=== PATIENT | female | born 1970 | race Caucasian/White ===

== ENCOUNTER 2020-01-22 00:58 | Outpatient (CLI) | payer MEDICARE, OTHER, SELFPAY ==
[2020-01-22 20:48] LABS: SARS-CoV-2 RNA PCR Negative
== END 2020-01-22 00:59 | disposition home or self-care (01) ==
LOC: ANHCOVIDDT 00:59
PROVIDERS: Visit Provider Obstetrics & Gynecology
DX: Z01.812 Encounter for preprocedural laboratory examination (principal); Z20.828 Contact with and (suspected) exposure to other viral communicable diseases
CPT/HCPCS: 87635; C9803; U0003

== ENCOUNTER 2020-01-24 00:20 | Day surgery (SDC) | payer MEDICARE, OTHER, SELFPAY ==
[2020-01-13 08:38] VITALS: BMI 74.7
[2020-01-24 11:00] VITALS: BP 151/102; PULSE 93; RESP 20; TEMP 36.6; O2SAT 95
--- NOTE | 2020-01-24 12:01 | PM.IMHP ---
H&P: HPI History of Present Illness Date/Time: 01/24/20 12:01 Chief complaint: Abnormal Uterine Bleeding Narrative: Stephanie Shaw is a 49 year old female with very high BMI whom was having problems with AUB. Ultrasound was inconclusive because body habitus. A1c and TSH normal. Unable to complete EMB in office due to patient discomfort. She has anxiety as well. DIscussed doing hysteroscopy D&C to evaluate the uterus, doing a pap under anesthesia since hasnt been completed yet, and finally placing an IUD for treatment of AUB so wouldnt need to worry if any further problems after the hysteroscopy . She is agreeable to this Review of Systems Review of Systems: All systems reviewed & are unremarkable except as noted in HPI and below Constitutional: Constitutional: Reports no additional constitutional complaints Eyes: Eyes: Reports no additional eye complaints ENT: Reports system reviewed and no additional complaints, except as documented Cardiovascular: Cardiovascular: Reports no additional cardiovascular complaints Respiratory: Respiratory: Reports no additional respiratory complaints [facility] Past Medical History Medical History Abnormal vaginal bleeding Anemia Anxiety Asthma Depression History of left heart catheterization (LHC) Hypertension Obesity Surgical History Surgical History H/O tubal ligation H/O umbilical hernia repair Hx of cholecystectomy Social History Social History Smoking status: Never smoker Alcohol intake: never Substance use: never Spiritual care concerns: No Meds Home Medications and Allergies Home Medications Medication Instructions Recorded Confirmed Type cyclobenzaprine 10 mg PO BID PRN 06/03/19 01/24/20 History dicyclomine 20 mg PO TID 06/03/19 01/24/20 History hydrochlorothiazide 25 mg PO DAILY 06/03/19 01/24/20 History oxcarbazepine 300 mg PO BID 06/03/19 01/24/20 History acetaminophen-codeine 1 tablet PO Q6H PRN 01/13/20 01/24/20 History albuterol sulfate [ProAir HFA] 1 inh INHALATION QID PRN 01/13/20 01/24/20 History aspirin 81 mg PO DAILY 01/13/20 01/24/20 History buspirone 10 mg PO BID 01/13/20 01/24/20 History calcium carbonate [Calcium 600] 600 mg PO BID 01/13/20 01/24/20 History cholecalciferol (vitamin D3) 50 mcg PO DAILY 01/13/20 01/24/20 History [Vitamin D3] clonidine HCl 0.2 mg PO DAILY 01/13/20 01/24/20 History ferrous sulfate [iron] 325 mg PO DAILY 01/13/20 01/24/20 History fluoxetine 60 mg PO DAILY 01/13/20 01/24/20 History hyoscyamine sulfate [Levsin] 0.125 mg PO Q4H PRN 01/13/20 01/13/20 History lamotrigine [Lamictal] 50 mg PO DAILY 01/13/20 01/24/20 History nortriptyline 10 mg PO HS 01/13/20 01/24/20 History omeprazole 40 mg PO BID 01/13/20 01/24/20 History pregabalin 300 mg PO BID 01/13/20 01/24/20 History Allergies Allergy/AdvReac Type Severity Reaction Status Date / Time naproxen [From Aleve] AdvReac PILL GETS Verified 01/24/20 11:32 STUCK IN THROAT Exam Const: General: no acute distress HENMT: Ears: TM's normal bilaterally Eyes: General: appearance normal, both eyes and all related structures Neck: Neck: no JVD Resp: Auscultation: clear to auscultation bilaterally Cardio: Rate: regular rate Rhythm: regular rhythm GI: GI Palp: Yes Soft to palpation Skin: General skin exam: normal color and no rashes or lesions noted Neuro: Other: uses walker to help ambulate Psych: Mental Status: mental status grossly normal Assessment and Plan Assessment and plan (1) Abnormal vaginal bleeding: Code(s): N93.9 - Abnormal uterine and vaginal bleeding, unspecified Status: Acute Assessment and Plan: Plan is for screening for pap with HPV, evaluation of AUB with hysteroscopy D&C and placement of IUD MIRENA for treatment of IU
--- NOTE | 2020-01-24 12:06 | WPDHPUPDATE1 ---
History and Physical Update Update Date/Time: 01/24/20 12:06 History and Physical has been reviewed, including an updated exam of the patient. There are NO changes in the patient's condition. Risks, benefits, and alternatives have been discussed and questions answered. Patient agrees to proceed with procedure.
[2020-01-24] MEDS: ACETAMINOPHEN 500 MG TABLET 1000 MG PO (12:13)
--- NOTE | 2020-01-24 12:19 | WPDANESEPPF ---
Anes - Initial Pre Proc Eval Procedure: Operation Date: 01/24/20 13:00 Proposed Procedures p Hysteroscopy Dilation and Curettage With Intrauterine Device Insertion - Stephanie Nicole MD Date/Time: 01/24/20 12:19 Surgeon: Stephanie Nicole MD Pre Op Diagnosis: Abnormal Uterine Bleeding Patient Data Age: 49 Gender: F Height: 5 ft 3 in Weight: 191.42 kg Allergies Allergy/AdvReac Type Severity Reaction Status Date / Time naproxen [From Aleve] AdvReac PILL GETS Verified 01/24/20 11:32 STUCK IN THROAT Home Medications Medication Instructions Recorded Confirmed Type cyclobenzaprine 10 mg PO BID PRN 06/03/19 01/24/20 History dicyclomine 20 mg PO TID 06/03/19 01/24/20 History hydrochlorothiazide 25 mg PO DAILY 06/03/19 01/24/20 History oxcarbazepine 300 mg PO BID 06/03/19 01/24/20 History acetaminophen-codeine 1 tablet PO Q6H PRN 01/13/20 01/24/20 History albuterol sulfate [ProAir HFA] 1 inh INHALATION QID PRN 01/13/20 01/24/20 History aspirin 81 mg PO DAILY 01/13/20 01/24/20 History buspirone 10 mg PO BID 01/13/20 01/24/20 History calcium carbonate [Calcium 600] 600 mg PO BID 01/13/20 01/24/20 History cholecalciferol (vitamin D3) 50 mcg PO DAILY 01/13/20 01/24/20 History [Vitamin D3] clonidine HCl 0.2 mg PO DAILY 01/13/20 01/24/20 History ferrous sulfate [iron] 325 mg PO DAILY 01/13/20 01/24/20 History fluoxetine 60 mg PO DAILY 01/13/20 01/24/20 History hyoscyamine sulfate [Levsin] 0.125 mg PO Q4H PRN 01/13/20 01/13/20 History lamotrigine [Lamictal] 50 mg PO DAILY 01/13/20 01/24/20 History nortriptyline 10 mg PO HS 01/13/20 01/24/20 History omeprazole 40 mg PO BID 01/13/20 01/24/20 History pregabalin 300 mg PO BID 01/13/20 01/24/20 History Patient hx anesthesia problems: none Family hx anesthesia problems: none PMFSH Past Medical History Medical History Abnormal vaginal bleeding Anemia Anxiety Asthma Depression History of left heart catheterization (LHC) Hypertension Obesity Surgical History Surgical History H/O tubal ligation H/O umbilical hernia repair Hx of cholecystectomy Social History Social History Smoking status: Never smoker Alcohol intake: never Substance use: never Spiritual care concerns: No Anes - Eval Final PreProcedure Day of Procedure 01/24/20 12:19 Patient weight: super morbidly obese Heart: regular rate and rhythm Lungs: clear to auscultation Airway: Mallampati scale class III Neurological: alert and oriented Last oral intake: >/= 8 hours ASA classification: IV Emergent: no Anesthetic plan: proceed Anesthesia type and monitoring: general GIVS (may use LMA if needed) and standard monitoring Informed Consent: The patient's anesthetic plan and its attendant risks and benefits were discussed with the patient/family/POA. Questions were solicited and answers provided to the satisfaction of the patient/family/POA.
[2020-01-24] MEDS: LACTATED RINGERS 1,000 ML 30 ML IV CONT (12:25)
--- NOTE | 2020-01-24 14:01 | P.OP_ITS ---
Procedure Note - Detailed Date of procedure: 01/24/20 Pre-op diagnosis: Abnormal Uterine Bleeding intolerance to office examination Post-op diagnosis: other (Abnormal uterine bleeding, intolerance to office examination, and uterine polyp) Procedure performed: Exam under anesthesia, pap smear, hysteroscopy dialation and currettage and insertion of MIRENA IUD Description of procedure: The patient was taken to operating room. General anesthsia was found to be adequate. She was then prepared and draped in the dorsal lithotomy position in [facility]. A speculum was used to visualize the cervix and a single toothed tenaculum placed on the anterior lip. A uterine sound sounded the uterus to 9cm. A 5mm hysteroscope was then inserted into the cervix which was difficult given long vaginal canal and redundant v aginal tissue. The fundus was visualized. A small polyp noted in left cornua and possible posterior myoma intruding into the endometrium. Punch biopsy obtained of myoma. The hysteroscope removed and the sharp currettage was used which appeared to remove the polyp. This was placed in formalin. A mirena IUD was then inserted after setting the device to 9cm, inserting into the endometrium and releasing it by pulling the trigger. the string was then cut to 5cm long. Upon cutting the redundant tissue got into the scissors from a valsalva. So the vaginal wall was then repaired with 2 figure of 8 sutures of O- vicryl. Clots were removed. EBL approximately 50cc All instruments removed and instruments accounted for. [facility] Surgeon: Stephanie Nicole MD Estimated blood loss (mL): 50 Drains: No Packing: No Pathology: yes (endometrial currettings and punch biopsy together) Complications: No immediate complications Condition: stable Disposition: PACU Findings: polyp in left cornua. Fluffy white endometrium throughout
[2020-01-24 14:02] VITALS: BP 139/77; PULSE 93; RESP 20; O2SAT 97
[2020-01-24 14:15] VITALS: BP 139/70; PULSE 85; RESP 20; O2SAT 93
[2020-01-24 14:45] VITALS: BP 120/85; PULSE 88; RESP 20; O2SAT 93
[2020-01-24 15:10] VITALS: BP 128/68; PULSE 85; RESP 20; O2SAT 94
== END 2020-01-24 15:27 | disposition home or self-care (01) ==
PROVIDERS: Visit Provider Obstetrics & Gynecology
PROC: 0U5B8ZZ Destruction of Endometrium, Via Natural or Artificial Opening Endoscopic (ICD-10-PCS; CPT 58563; principal; 2020-01-24 13:00)
DX: N93.9 Abnormal uterine and vaginal bleeding, unspecified (principal); D64.9 Anemia, unspecified; N85.8 Other specified noninflammatory disorders of uterus; Z30.430 Encounter for insertion of intrauterine contraceptive device; J45.909 Unspecified asthma, uncomplicated; F41.8 Other specified anxiety disorders; I10 Essential (primary) hypertension; Z68.45 Body mass index [BMI] 70 or greater, adult; Z79.82 Long term (current) use of aspirin
CPT/HCPCS: 58558; 58300; 88305; A9270; J2250; J2704; J3010; J7030; J7120

== ENCOUNTER 2020-03-28 18:30 | Emergency (ER) | payer MEDICARE, OTHER, SELFPAY ==
--- NOTE | ~2020-03-28 | XR_ITS ---
EXAMINATION: XR chest 1V portable DATE: 03/28/2020 18:57 INDICATION: Mid to left-sided chest pain. TECHNIQUE: A single frontal view of the chest was obtained. COMPARISON: Chest 2 views 06/03/2019, CT abdomen and pelvis 03/21/2017 FINDINGS: Sensitivity is decreased by obesity. There are mild airspace opacities in right lower lung zone. No pleural effusion or pneumothorax. Cardiomegaly is noted. IMPRESSION: 1. Mild airspace opacities in right lower lung zone, consistent with atelectasis versus pneumonia. 2. Cardiomegaly. Reviewed, dictated and finalized at location A. G[employer] MEDICAL SERVICES COORDINATOR IMPRESSION: 1. Mild airspace opacities in right lower lung zone, consistent with atelectasi s versus pneumonia. 2. Cardiomegaly.
--- NOTE | ~2020-03-28 | CT_ITS ---
EXAMINATION: CT abdomen pelvis w con DATE: 03/28/2020 20:51 INDICATION: Left chest pain. Epigastric abdominal pain. TECHNIQUE: Computed tomography (CT) of the abdomen and pelvis was performed with 100 mL Omnipaque 350 intravenous contrast. Automated exposure control and iterative reconstruction technique were employe d. The dose-length product was 1575.73 mGy-cm. COMPARISON: CT abdomen and pelvis 03/21/2017 FINDINGS: The visualized portions of the lung bases demonstrate mild atelectasis. A calcified right l deandre nodule is consistent with old granulomatous disease. No pleural effusion. Cardiomegaly is noted. No pericardial effusion. The liver is normal. There is chronic mild splenomegaly, likely secondary to obesity. There are surgical changes of the stomach. There are changes of cholecystectomy. The pancre as, adrenal glands, and kidneys are normal. There are no dilated loops of bowel. The appendix is norm al. There is no free intraperitoneal fluid. There is a mildly enlarged left inguinal lymph node, like ly reactive. There is mild thoracolumbar spondylosis. IMPRESSION: 1. No etiology for the patient's symptoms. Reviewed, dictated and finalized at location A. GER OF PMO
[2020-03-28 18:30] VITALS: BP 142/77; PULSE 90; PULSE 92; RESP 12; TEMP 36.6; O2SAT 97
--- NOTE | 2020-03-28 18:43 | ECG_ITS ---
Measurements Intervals [place] Rate: 88 P: 52 MO: 183 QRS: 3 QRSD: 109 T: 25 QT: 357 QTc: 432 Interpretive Statements SINUS RHYTHM NORMAL ECG Electronically Signed On 03-29-2020 18:08:14 RN [facility] by Clayton Styles D.O.
[2020-03-28 19:14] LABS: Basophils Absolute Auto 0.04 K/mm3 (0.00-0.10); Basophils Percent Auto 0.7 % (0.0-1.0); Eosinophils Absolute Auto 0.28 K/mm3 (0.02-0.50); Eosinophils Percent Auto 4.9 % (1.0-6.0); Hematocrit 35.5 % (35.0-49.0); Hemoglobin 10.9 g/dL (12.0-15.0); Immature Granulocyte Absolute 0.02 K/mm3 (0.00-0.00); Immature Granulocyte Percent A 0.3 % (0.0-0.0); Lymphocytes Absolute Auto 1.58 K/mm3 (1.10-4.50); Lymphocytes Percent Auto 27.4 % (18.0-42.0); Mean Corpuscular HGB Conc 30.7 g/dL (32.0-36.0); Mean Corpuscular Hemoglobin 27.4 pg (27.0-31.0); Mean Corpuscular Volume 89.2 fL (78.0-102.0); Mean Platelet Volume 11.7 fl (9.2-11.8); Monocytes Absolute Auto 0.43 K/mm3 (0.10-0.90); Monocytes Percent Auto 7.5 % (2.0-11.0); Neutrophils Absolute Auto 3.4 K/mm3 (1.7-7.2); Neutrophils Percent Auto 59.2 % (50.0-70.0); Platelet Count Result 161 K/mm3 (150-420); Red Blood Count 3.98 M/mm3 (4.20-5.40); Red Cell Distribution Width 14.3 % (11.6-14.4); White Blood Count 5.8 K/mm3 (4.8-10.8)
[2020-03-28 19:31] LABS: Alanine Aminotransferase 46 U/L (14-59); Alkaline Phosphatase 52 U/L (46-116); Anion Gap 1 mmol/L (8-16); Aspartate Amino Transferase 75 U/L (15-37); Bilirubin,Total 0.5 mg/dL (0.00-1.00); Blood Urea Nitrogen 12 mg/dL (7-18); Calcium 8.9 mg/dL (8.5-10.1); Carbon Dioxide 37 mmol/L (21-32); Chloride 103 mmol/L (98-108); Estimated CRCL calculation 137 ml/min; Estimated Glomerular Filt Rate > 60; Glucose 100 mg/dL (70-99); Osmolality Calculated 291 mOsm/kg (285-295); Potassium 3.8 mmol/L (3.5-5.1); Sodium 141 mmol/L (136-145)
[2020-03-28 19:36] LABS: Troponin I < 0.02 ng/mL (0.00-0.056)
[2020-03-28 19:37] LABS: Lipase 72 U/L (73-393)
[2020-03-28 20:12] LABS: Pregnancy On Board Control Positive; Urine Pregnancy Test Negative
--- NOTE | 2020-03-28 21:27 | ED.CHESTPAIN ---
HPI - Chest Pain General Chief Complaint: Chest Pain Stated Complaint: Ambulance Source: patient and EMS Mode of arrival: EMS Limitations: no limitations History of Present Illness HPI narrative: this is a 49-year-old female that presents with some chest discomfort with more epigastric fullness, feeling lightheaded with some nausea, the patient recently had a gastric bypass of previous week, and is currently on a restricted diet causing her to be lightheaded. The patient had normal heart catheterization approximately 2 years ago. Has a history of hypertension, with no shortness of breath no diaphoresis does have some epigastric abdominal discomfort and fullness. Pain is off and on and patient is currently mod morbidly obese and recently had a gastric bypass for obesity. MD complaint: chest discomfort ( Epigastric tenderness) Onset (ago): day(s) Onset: during rest and after eating Pain location: epigastric Pain radiation: none Severity: moderate Quality: fullness Related Data Home Medications Medication Instructions Recorded Confirmed cyclobenzaprine 10 mg PO BID PRN 06/03/19 03/28/20 dicyclomine 20 mg PO TID 06/03/19 03/28/20 hydrochlorothiazide 25 mg PO DAILY 06/03/19 03/28/20 oxcarbazepine 450 mg PO BID 06/03/19 03/28/20 albuterol sulfate [ProAir HFA] 1 inh INHALATION QID PRN 01/13/20 03/28/20 buspirone 20 mg PO BID 01/13/20 03/28/20 clonidine HCl 0.2 mg PO HS 01/13/20 03/28/20 ferrous sulfate [iron] 325 mg PO DAILY 01/13/20 03/28/20 fluoxetine 60 mg PO DAILY 01/13/20 03/28/20 lamotrigine [Lamictal] 50 mg PO DAILY 01/13/20 03/28/20 nortriptyline 10 mg PO HS 01/13/20 03/28/20 pregabalin 300 mg PO BID 01/13/20 03/28/20 famotidine 20 mg PO BID 03/28/20 03/28/20 hydroxyzine pamoate 25 mg PO TID 03/28/20 03/28/20 loratadine 10 mg PO DAILY 03/28/20 03/28/20 oxycodone 5 mg PO Q6-12H PRN 03/28/20 03/28/20 Allergies Allergy/AdvReac Type Severity Reaction Status Date / Time naproxen [From Aleve] AdvReac PILL GETS Verified 01/24/20 11:32 STUCK IN THROAT Review of Systems Review of Systems: All systems reviewed & are unremarkable except as noted in HPI and below PMFSH Past Medical History Medical History (Updated 03/28/20 @ 21:37 by Jraed Guadarrama MD) Abnormal vaginal bleeding Anemia Anxiety Asthma Depression History of left heart catheterization (LHC) Hypertension Obesity Surgical History Surgical History H/O tubal ligation H/O umbilical hernia repair Hx of cholecystectomy Social History Social History Smoking status: Never smoker Alcohol intake: never Substance use: never Spiritual care concerns: No Exam Const: General: cooperative and healthy appearing HENMT: Head: normal to inspection Ears: hearing grossly normal bilaterally General nose exam: Normal external nose present Face and sinus: normal facial exam Eyes: General: appearance normal, both eyes and all related structures Chest: Chest palpation & inspection: normal inspection of the chest Resp: Effort & Inspection: normal respiratory effort and able to speak in complete sentences Cardio: Jugular venous distension: no JVD Palpation: normal PMI Rate: regular rate Rhythm: regular rhythm Heart sounds: S1 normal heart sound present and S2 normal heart sound present GI: Inspection: normal to inspection GI Palp: Yes abdominal tenderness ( Epigastric area) Percussion: Yes normal to percussion Back/Spine/Pelvis: Back: no CVA tenderness Cervical Spine: normal cervical lordosis Skin: General skin exam: normal color and no rashes or lesions noted Neuro: General: oriented to person, oriented to place, oriented to time and patient oriented x3 Psych: Appearance: grossly normal Mental Status: mental status grossly normal Course Course Emergency Course: patient currently not having any chest pain but does
[2020-03-28 22:19] VITALS: BP 148/75; PULSE 92; RESP 12; O2SAT 98
== END 2020-03-28 22:15 | disposition home or self-care (01) ==
PROVIDERS: Emergency Provider Emergency Medicine
DX: R12 Heartburn (principal); J18.9 Pneumonia, unspecified organism
CPT/HCPCS: 36415; 71045; 74177; 80053; 81025; 83690; 84484; 85025; 93005; 99284; A9270; Q9965

== ENCOUNTER 2021-01-03 17:29 | Emergency (ER) | payer MEDICARE, OTHER, SELFPAY ==
[2021-01-03 17:35] VITALS: BP 148/90; PULSE 99; RESP 20; TEMP 36.9; O2SAT 100
[2021-01-03 17:58] LABS: Add Urine Microscopic? YES; Appearance Urine Clear (Clear); Bilirubin Urine Negative (Negative); Blood Urine 2+ (Negative); Color Urine Light Yellow (Yellow); Glucose Urine UA Negative (Negative); Ketones Urine Negative (Negative); Leukocyte Esterase Ur Negative (Negative); Nitrate Urine Negative (Negative); Protein Urine Negative (Negative); Specific Grav Ur 1.025 (1.010-1.020); Urobilinogen Urine 0.2 mg/dL (0.2-1.0)
[2021-01-03 18:03] LABS: Bacteria Urine Trace /hpf; Squamous Epithelial Cell Urine Many /hpf (Few); WBC Urine 0-3 /hpf (0-3)
--- NOTE | 2021-01-03 18:26 | ED.ABDPAIN ---
HPI - Abdominal Pain General Chief Complaint: Urogenital-Female Stated Complaint: Not feeling well for a couple days Time Seen by Provider: 01/03/21 17:31 Source: patient and RN notes reviewed Mode of arrival: ambulatory Limitations: no limitations History of Present Illness MD elicited complaint: abdominal pain and other (and urinary frequency. no fever, nausea, vomiting or loose stools. ) Pertinent past history: past UTI Onset (ago): day(s) (2) Pain Consistency: colicky Location: suprapubic Severity: mild Quality: cramping Exacerbating factors: nothing Relieving factors: nothing Associated symptoms: dysuria Related Data Patient : No Home Medications Medication Instructions Recorded Confirmed cyclobenzaprine 10 mg PO BID PRN 06/03/19 01/03/21 dicyclomine 20 mg PO TID 06/03/19 01/03/21 hydrochlorothiazide 25 mg PO DAILY 06/03/19 01/03/21 oxcarbazepine 450 mg PO BID 06/03/19 01/03/21 albuterol sulfate [ProAir HFA] 1 inh INHALATION QID PRN 01/13/20 01/03/21 buspirone 20 mg PO BID 01/13/20 01/03/21 clonidine HCl 0.2 mg PO HS 01/13/20 01/03/21 ferrous sulfate [iron] 325 mg PO DAILY 01/13/20 01/03/21 fluoxetine 60 mg PO DAILY 01/13/20 01/03/21 lamotrigine [Lamictal] 50 mg PO DAILY 01/13/20 01/03/21 nortriptyline 10 mg PO HS 01/13/20 01/03/21 pregabalin 300 mg PO BID 01/13/20 01/03/21 famotidine 20 mg PO BID 03/28/20 01/03/21 hydroxyzine pamoate 25 mg PO TID 03/28/20 01/03/21 loratadine 10 mg PO DAILY 03/28/20 01/03/21 oxycodone 5 mg PO Q6-12H PRN 03/28/20 01/03/21 Allergies Allergy/AdvReac Type Severity Reaction Status Date / Time naproxen [From Aleve] AdvReac PILL GETS Verified 09/08/20 09:00 STUCK IN THROAT Review of Systems Review of Systems: All systems reviewed & are unremarkable except as noted in HPI and below Constitutional: Constitutional: Reports as per HPI and Reports no additional constitutional complaints Eyes: Eyes: Reports as per HPI and Reports no additional eye complaints ENT: Reports system reviewed and no additional complaints, except as documented and Reports as per HPI Cardiovascular: Cardiovascular: Reports as per HPI and Reports no additional cardiovascular complaints Respiratory: Respiratory: Reports as per HPI and Reports no additional respiratory complaints Gastrointestinal: Gastrointestinal: Reports as per HPI and Reports no additional gastrointestinal complaints Genitourinary: Genitourinary: Reports no additional female genitourinary complaints, Reports as per HPI, Reports nocturia and Reports dysuria Musculoskeletal: Musculoskeletal: Reports no additional musculoskeletal complaints and Reports as per HPI Integumentary/Breasts: Skin/Breast: Reports system reviewed and no additional complaints, except as docu and Reports as per HPI Neurologic: Reports system reviewed and no additional complaints, except as documented and Reports as per HPI Psychiatric: Psychiatric: Reports no additional psychiatric complaints and Reports as per HPI Endocrine: Endocrine: Reports no additional endocrine complaints and Reports as per HPI Hematologic/Lymphatic: Hematologic/Lymphatic: Reports no additional hematologic/lymphatic complaints and Reports as per HPI Allergic/Immunologic: Allergic/Immunologic: Reports no additional allergic/immunologic complaints and Reports as per HPI PMFSH Past Medical History Medical History (Updated 01/03/21 @ 18:39 by Sammie Alberto MD) Abnormal vaginal bleeding Anemia Anxiety Asthma Depression History of left heart catheterization (LHC) Hypertension Obesity Surgical History Surgical History H/O tubal ligation H/O umbilical hernia repair Hx of cholecystectomy Social History Social History Smoking status: Never smoker Alcohol intake: never Substance use: never Spiritual care concerns: No Exam Const: Gen
[2021-01-03] MEDS: ACETAMINOPHEN 325 MG TABLET 650 MG PO (18:28)
[2021-01-03 19:11] VITALS: BP 136/70; PULSE 95; RESP 20; TEMP 36.4; O2SAT 96
== END 2021-01-03 19:16 | disposition home or self-care (01) ==
PROVIDERS: Emergency Provider Emergency Medicine; PCP Family Medicine
DX: N39.0 Urinary tract infection, site not specified (principal)
CPT/HCPCS: 81001; 99283; A9270

== ENCOUNTER 2021-01-25 18:46 | Emergency (ER) | payer MEDICARE, OTHER, SELFPAY ==
--- NOTE | ~2021-01-25 | CT_ITS ---
EXAMINATION: CTA chest PE protocol DATE: 01/25/2021 20:38 INDICATION: Shortness of breath. TECHNIQUE: Computed tomography angiography (CTA) of the chest was performed with 100 mL Omnipaque-350 intravenous contrast timed to evaluate the pulmonary arteries. Coronal maximum intensity projection 3D-reconstructions were created by the technologist. Automated exposure control and iterative reconst ruction technique were employed. The dose-length product was 1010.84 mGy-cm. COMPARISON: Chest 2 views 01/25/2021, CT abdomen and pelvis 03/28/2020 FINDINGS: The lungs demonstrate mild atelectasis. There are 7 mm and 3 mm nodules in lingula. There i s a 6 mm nodule in left lower lobe. No pleural effusion. The heart size is normal. No pericardial eff usion. There is poor contrast opacification of the pulmonary arteries. There are surgical changes in the stomach. There is mild thoracic spondylosis. IMPRESSION: 1. Nondiagnostic evaluation of the pulmonary arteries. Repeat CTA is recommended. 2. Pulmonary nodules measuring up to 7 mm, stable from 03/28/2020, likely benign. Reviewed, dictated and finalized at location A. IMPRESSION: 1. Nondiagnostic evaluation of the pulmonary arteries. Repeat CTA is recommende d. 2. Pulmonary nodules measuring up to 7 mm, stable from 03/28/2020, likely benign .
--- NOTE | ~2021-01-25 | CT_ITS ---
EXAMINATION: CTA chest PE protocol DATE: 01/25/2021 21:30 INDICATION: Shortness of breath. TECHNIQUE: Computed tomography angiography (CTA) of the chest was performed with 100 mL Omnipaque-350 intravenous contrast timed to evaluate the pulmonary arteries. Coronal maximum intensity projection 3D-reconstructions were created by the technologist. Automated exposure control and iterative reconst ruction technique were employed. The dose-length product was 902.39 mGy-cm. COMPARISON: CT abdomen and pelvis 03/28/2020. FINDINGS: The lungs demonstrate mild atelectasis. There are 7 mm and 3 mm nodules in lingula. There i s a 6 mm nodule in left lower lobe. No pleural effusion. The heart size is normal. No pericardial eff usion. There is no pulmonary embolus. There are surgical changes in the stomach. There is mild thoracic spondylosis. IMPRESSION: 1. No pulmonary embolus. Sensitivity is mildly decreased by motion artifact and obesity. 2. Pulmonary nodules measuring up to 7 mm, stable from 03/28/2020, likely benign. Reviewed, dictated and finalized at location A. IMPRESSION: 1. No pulmonary embolus. Sensitivity is mildly decreased by motion artifact and obesity. 2. Pulmonary nodules measuring up to 7 mm, stable from 03/28/2020, likely benign .
--- NOTE | ~2021-01-25 | XR_ITS ---
EXAMINATION: XR chest 2V DATE: 01/25/2021 19:58 INDICATION: Shortness of breath. TECHNIQUE: Frontal and lateral views of the chest were obtained. COMPARISON: Chest single view 03/28/2020, CT abdomen and pelvis 03/28/2020 FINDINGS: There are airspace opacities in the lower lung zones. No pleural effusion or pneumothorax. Cardiomegaly is noted. There are prominent paracardial fat pads. Surgical clips overlie the upper george bs. Catheters overlie the upper limbs. IMPRESSION: 1. Airspace opacities in the lower lung zones, consistent with atelectasis versus pneumonia. 2. Cardiomegaly. Reviewed, dictated and finalized at location A. IMPRESSION: 1. Airspace opacities in the lower lung zones, consistent with atelectasis vers us pneumonia. 2. Cardiomegaly.
--- NOTE | 2021-01-25 19:22 | ECG_ITS ---
Measurements Intervals [place] Rate: 92 P: 46 [place]: 198 QRS: 9 QRSD: 115 T: 18 QT: 371 QTc: 461 Interpretive Statements SINUS RHYTHM EARLY PRECORDIAL R/S TRANSITION CONSIDER INFERIOR INFARCT, AGE INDETERMINATE ABNORMAL ECG Electronically Signed On 01-26-2021 7:14:04 CDT by Clayton Styles D.O.
[2021-01-25 19:25] VITALS: BP 132/90; PULSE 95; RESP 20; TEMP 36.4; O2SAT 96
[2021-01-25 19:48] LABS: Basophils Absolute Auto 0.06 K/mm3 (0.00-0.10); Basophils Percent Auto 0.8 % (0.0-1.0); Eosinophils Absolute Auto 0.25 K/mm3 (0.02-0.50); Eosinophils Percent Auto 3.3 % (1.0-6.0); Hematocrit 33.7 % (35.0-49.0); Hemoglobin 11.1 g/dL (12.0-15.0); Immature Granulocyte Absolute 0.03 K/mm3 (0.00-0.00); Immature Granulocyte Percent A 0.4 % (0.0-0.0); Lymphocytes Absolute Auto 2.57 K/mm3 (1.10-4.50); Mean Corpuscular HGB Conc 32.9 g/dL (32.0-36.0); Mean Corpuscular Hemoglobin 29.1 pg (27.0-31.0); Mean Corpuscular Volume 88.5 fL (78.0-102.0); Mean Platelet Volume 11.9 fl (9.2-11.8); Monocytes Absolute Auto 0.55 K/mm3 (0.10-0.90); Monocytes Percent Auto 7.3 % (2.0-11.0); Neutrophils Absolute Auto 4.1 K/mm3 (1.7-7.2); Neutrophils Percent Auto 54.2 % (50.0-70.0); Platelet Count Result 198 K/mm3 (150-420); Red Blood Count 3.81 M/mm3 (4.20-5.40); Red Cell Distribution Width 14.3 % (11.6-14.4); White Blood Count 7.6 K/mm3 (4.8-10.8)
[2021-01-25 20:02] LABS: Partial Thromboplastin Time 25.5 SEC (23.90-30.70); Prothrombin Time 10.9 Seconds (9.50-12.10)
[2021-01-25 20:07] LABS: D Dimer 0.72 mg/L (0.19-0.50)
[2021-01-25 20:10] LABS: Alanine Aminotransferase 64 U/L (14-59); Albumin Level 2.8 g/dL (3.4-5.0); Alkaline Phosphatase 97 U/L (46-116); Anion Gap 9 mmol/L (8-16); Aspartate Amino Transferase 17 U/L (15-37); Bilirubin,Total 0.2 mg/dL (0.00-1.00); Blood Urea Nitrogen 13 mg/dL (7-18); Calcium 8.3 mg/dL (8.5-10.1); Carbon Dioxide 27 mmol/L (21-32); Chloride 107 mmol/L (98-108); Estimated CRCL calculation 128 ml/min; Estimated Glomerular Filt Rate 50; Glucose 97 mg/dL (70-99); Osmolality Calculated 296 mOsm/kg (285-295); Potassium 3.7 mmol/L (3.5-5.1); Sodium 143 mmol/L (136-145); Total Protein 6.7 g/dL (6.4-8.2); Troponin I 16.7 ng/L (0.00-60.4)
[2021-01-25 20:11] LABS: Magnesium 1.7 mg/dL (1.8-2.4)
[2021-01-25 20:20] VITALS: BP 117/72; PULSE 89; RESP 20; O2SAT 99
[2021-01-25 20:46] LABS: NT Pro B Type Natriuretic Pept 81 pg/mL (0-125)
--- NOTE | 2021-01-25 21:54 | ED.SOB ---
HPI - SOB/Dyspnea General Chief Complaint: Shortness of Breath/Dyspnea Stated Complaint: swelling and trouble breathing Source: patient Mode of arrival: ambulatory History of Present Illness HPI Narrative: patient presents with some mild shortness of breath with no fever chills no cough no congestion no runny nose no nausea or vomiting the patient had recently surgery to remove excess skin under her bilateral arms and has currently drains in place the patient felt that she was a little volume overloaded with some mild lower extremity swelling, no audible wheezing no chest pain no diarrhea constipation no abdominal pain. MD elicited complaint: shortness of breath Onset (ago): day(s) Timing: intermittent Severity: mild Exacerbating factors: exertion Relieving factors: rest Related Data Home Medications Medication Instructions Recorded Confirmed cyclobenzaprine 10 mg PO BID PRN 06/03/19 01/25/21 dicyclomine 20 mg PO TID 06/03/19 01/25/21 hydrochlorothiazide 25 mg PO DAILY 06/03/19 01/25/21 oxcarbazepine 450 mg PO BID 06/03/19 01/25/21 albuterol sulfate [ProAir HFA] 1 inh INHALATION QID PRN 01/13/20 01/25/21 buspirone 20 mg PO BID 01/13/20 01/25/21 clonidine HCl 0.2 mg PO HS 01/13/20 01/25/21 ferrous sulfate [iron] 325 mg PO DAILY 01/13/20 01/25/21 fluoxetine 60 mg PO DAILY 01/13/20 01/25/21 lamotrigine [Lamictal] 50 mg PO DAILY 01/13/20 01/25/21 nortriptyline 10 mg PO HS 01/13/20 01/25/21 pregabalin 300 mg PO BID 01/13/20 01/25/21 famotidine 20 mg PO BID 03/28/20 01/25/21 hydroxyzine pamoate 25 mg PO TID 03/28/20 01/25/21 loratadine 10 mg PO DAILY 03/28/20 01/25/21 oxycodone 5 mg PO Q6-12H PRN 03/28/20 01/25/21 Allergies Allergy/AdvReac Type Severity Reaction Status Date / Time naproxen [From Aleve] AdvReac PILL GETS Verified 09/08/20 09:00 STUCK IN THROAT Review of Systems Review of Systems: All systems reviewed & are unremarkable except as noted in HPI and below PMFSH Past Medical History Medical History (Updated 01/25/21 @ 21:58 by Jared Guadarrama MD) Abnormal vaginal bleeding Anemia Anxiety Asthma Depression History of left heart catheterization (LHC) Hypertension Obesity Surgical History Surgical History H/O tubal ligation H/O umbilical hernia repair Hx of cholecystectomy Social History Social History Smoking status: Never smoker Alcohol intake: never Substance use: never Spiritual care concerns: No Exam Const: General: no acute distress Orientation/consciousness: patient oriented x3 HENMT: Head: normal to inspection Eyes: Conjunctivae: conjunctivae normal Pupils: Equal, round and reactive pupils present Neck: Neck: normal visual inspection Chest: Chest palpation & inspection: normal inspection of the chest Resp: Effort & Inspection: normal respiratory effort Auscultation: clear to auscultation bilaterally Cardio: Rate: regular rate Rhythm: regular rhythm GI: GI Palp: Yes Soft to palpation Percussion: Yes normal to percussion : General: Yes no CVA tenderness Back/Spine/Pelvis: Back: no CVA tenderness Skin: General skin exam: normal color Rashes: no rashes Neuro: General: patient oriented x3 and moves all extremities Extrem: General: normal to inspection and edema Other: trace peripheral edema bilaterally Psych: Mental Status: mental status grossly normal Affect: normal affect Thought content: Yes Normal thought content present Course Course Emergency Course: x-rays and labs reviewed with patient x-ray shows no acute findings patient had an elevated D-dimer and subsequent normal CTA scan performed Vital Signs Vital signs: Vital Signs Temperature 36.4 C 01/25/21 19:25 Pulse Rate 95 01/25/21 19:25 Respiratory Rate 20 01/25/21 19:25 Blood Pressure 132/90 01/25/21 19:25 Pulse Oximetry 96 01/25/21 19:25 [place]
[2021-01-25 22:32] VITALS: BP 133/74; PULSE 90; RESP 20; TEMP 36.3; O2SAT 97
== END 2021-01-25 22:33 | disposition home or self-care (01) ==
PROVIDERS: Emergency Provider Emergency Medicine; PCP Family Medicine
DX: R60.9 Edema, unspecified (principal); I10 Essential (primary) hypertension
CPT/HCPCS: 36415; 71046; 71275; 80053; 83735; 83880; 84484; 85025; 85380; 85610; 85730; 93005; 99283; 99284; Q9967

== ENCOUNTER 2021-06-21 16:18 | Emergency (ER) | payer MEDICARE, OTHER, SELFPAY ==
[2021-06-21 16:34] VITALS: PULSE 90; RESP 22; TEMP 37.2; O2SAT 94
--- NOTE | 2021-06-21 16:56 | ED.GENADULT ---
HPI - General Adult General Chief complaint: Unspecified Stated complaint: sores behind her knees Time Seen by Provider: 06/21/21 16:56 Source: patient History of Present Illness HPI narrative: this is a 51-year-old female morbidly obese that presents with which she states is sores on the back of her left knee with some no fever chills no drainage no known injury with strong brisk pedal pulse on the left with no peripheral edema no nausea vomiting no abdominal pain. Onset (ago): day(s) Location: left and lower extremity Severity: mild Related Data Home Medications Medication Instructions Recorded Confirmed cyclobenzaprine 10 mg PO BID PRN 06/03/19 01/25/21 dicyclomine 20 mg PO TID 06/03/19 01/25/21 hydrochlorothiazide 25 mg PO DAILY 06/03/19 01/25/21 oxcarbazepine 450 mg PO BID 06/03/19 01/25/21 albuterol sulfate [ProAir HFA] 1 inh INHALATION QID PRN 01/13/20 01/25/21 buspirone 20 mg PO BID 01/13/20 01/25/21 clonidine HCl 0.2 mg PO HS 01/13/20 01/25/21 ferrous sulfate [iron] 325 mg PO DAILY 01/13/20 01/25/21 fluoxetine 60 mg PO DAILY 01/13/20 01/25/21 lamotrigine [Lamictal] 50 mg PO DAILY 01/13/20 01/25/21 nortriptyline 10 mg PO HS 01/13/20 01/25/21 pregabalin 300 mg PO BID 01/13/20 01/25/21 famotidine 20 mg PO BID 03/28/20 01/25/21 hydroxyzine pamoate 25 mg PO TID 03/28/20 01/25/21 loratadine 10 mg PO DAILY 03/28/20 01/25/21 oxycodone 5 mg PO Q6-12H PRN 03/28/20 01/25/21 Allergies Allergy/AdvReac Type Severity Reaction Status Date / Time naproxen [From Aleve] AdvReac PILL GETS Verified 09/08/20 09:00 STUCK IN THROAT Review of Systems Review of Systems: All systems reviewed & are unremarkable except as noted in HPI and below PMFSH Past Medical History Medical History (Updated 06/21/21 @ 17:01 by Jared Guadarrama MD) Abnormal vaginal bleeding Anemia Anxiety Asthma Depression History of left heart catheterization (LHC) Hypertension Obesity Surgical History Surgical History H/O tubal ligation H/O umbilical hernia repair Hx of cholecystectomy Social History Social History Smoking status: Never smoker Alcohol intake: never Substance use: never Spiritual care concerns: No Exam Const: General: cooperative, healthy appearing, comfortable, no acute distress and well developed HENMT: Head: normal to inspection Ears: hearing grossly normal bilaterally General nose exam: Normal external nose present Face and sinus: normal facial exam Eyes: General: appearance normal, both eyes and all related structures Neck: Neck: normal visual inspection, full ROM and no lymphadenopathy Chest: Chest palpation & inspection: normal inspection of the chest and normal palpation of entire chest wall Resp: Effort & Inspection: normal respiratory effort Cardio: Jugular venous distension: no JVD Palpation: normal PMI Rate: regular rate Rhythm: regular rhythm GI: Inspection: normal to inspection Auscultation: normal bowel sounds Back/Spine/Pelvis: Back: no CVA tenderness Skin: Other: Red erythematous area on the posterior knee between fat pad it is located behind her left knee that is red moist erythematous. Neuro: General: oriented to person and oriented to place Extrem: General: normal to inspection, full ROM and capillary refill normal Psych: Appearance: grossly normal Course Course Emergency Course: Area was evaluated and placed nystatin on the affected area and advised patient to continue medication as prescribed and follow-up with her primary care physician. Vital Signs Vital signs: Vital Signs Temperature 37.2 C 06/21/21 16:34 Pulse Rate 90 06/21/21 16:34 Respiratory Rate 22 H 06/21/21 16:34 Pulse Oximetry 94 06/21/21 16:34 Temperature 37.2 C 06/21/21 16:34 Pulse Rate 90 06/21/21 16:34 Respiratory Rate 22 H 06/21/21 16:34 Pulse Oximetry
[2021-06-21] MEDS: MICONAZOLE NITRATE 2% CREAM 30 GM TUBE 1 APPLIC TOPICAL (17:05)
[2021-06-21 17:06] VITALS: PULSE 90; RESP 22; TEMP 36.6; O2SAT 95
== END 2021-06-21 17:09 | disposition home or self-care (01) ==
PROVIDERS: Emergency Provider Emergency Medicine; PCP Family Medicine
DX: B37.2 Candidiasis of skin and nail (principal)
CPT/HCPCS: 99283; A9270

== ENCOUNTER 2021-10-17 16:47 | Emergency (ER) | payer MEDICARE, OTHER, SELFPAY ==
--- NOTE | ~2021-10-17 | XR_ITS ---
XR knee RT 3V 10/17/2021 17:42 Indication: Chronic right knee pain Procedure: 3 views right knee Comparison: 10/30/2015 Findings: There is severe tricompartment osteoarthritis of the right knee. No acute fracture is ident ified. Lateral views limited for evaluation of effusion. No foreign bodies. Impression: 1: Severe tricompartment osteoarthritis of the right knee. Reviewed, dictated and finalized at location A. Impression: 1: Severe tricompartment osteoarthritis of the right knee.
[2021-10-17 17:02] VITALS: BP 137/93; PULSE 96; RESP 16; TEMP 36.6; O2SAT 97
--- NOTE | 2021-10-17 17:12 | PC.NURSE ---
erp at bedside for initial assessment
--- NOTE | 2021-10-17 17:28 | ED.EXTPRO ---
HPI - Extremity Problem General Chief complaint: Extremity Problem,Nontraumatic Stated complaint: R knee pain Time Seen by Provider: 10/17/21 16:51 Source: patient and RN notes reviewed Mode of arrival: wheelchair Limitations: no limitations History of Present Illness Complaint: extremity pain (edelmira-medial right knee pain x this PM. no acute injury) Onset (ago): hour(s) (4) Pain Consistency: constant Location: right and lower extremity Severity scale (1-10): 4 Quality: aching and dull Radiation: none Relieving factors: immobilization Exacerbating factors: weight bearing and walking Associated symptoms: arthralgias Related Data Home Medications Medication Instructions Recorded Confirmed cyclobenzaprine 10 mg tablet 10 mg PO BID PRN Spasms 06/03/19 10/17/21 dicyclomine 10 mg capsule 20 mg PO TID 06/03/19 10/17/21 hydrochlorothiazide 25 mg tablet 25 mg PO DAILY 06/03/19 10/17/21 oxcarbazepine 150 mg tablet 450 mg PO BID 06/03/19 10/17/21 albuterol sulfate 90 mcg/actuation 1 inh inhalation QID PRN Shortness 01/13/20 10/17/21 aerosol inhaler (ProAir HFA) Of Breath buspirone 10 mg tablet 20 mg PO BID 01/13/20 10/17/21 clonidine HCl 0.2 mg tablet 0.2 mg PO HS 01/13/20 10/17/21 ferrous sulfate 325 mg (65 mg 325 mg PO DAILY 01/13/20 10/17/21 iron) tablet (iron) fluoxetine 20 mg capsule 60 mg PO DAILY 01/13/20 10/17/21 lamotrigine 25 mg chewable 50 mg PO DAILY 01/13/20 10/17/21 dispersible tablet (Lamictal) nortriptyline 10 mg capsule 10 mg PO HS 01/13/20 10/17/21 pregabalin 150 mg capsule 300 mg PO BID 01/13/20 10/17/21 famotidine 20 mg tablet 20 mg PO BID 03/28/20 10/17/21 hydroxyzine pamoate 25 mg capsule 25 mg PO TID 03/28/20 10/17/21 loratadine 10 mg tablet 10 mg PO DAILY 03/28/20 10/17/21 oxycodone 5 mg tablet 5 mg PO Q6-12H PRN Pain 03/28/20 10/17/21 Allergies Allergy/AdvReac Type Severity Reaction Status Date / Time naproxen [From Aleve] AdvReac PILL GETS Verified 10/17/21 17:05 STUCK IN THROAT Review of Systems Review of Systems: All systems reviewed & are unremarkable except as noted in HPI and below PMFSH Past Medical History Medical History Abnormal vaginal bleeding Anemia Anxiety Asthma Depression History of left heart catheterization (LHC) Hypertension Knee pain, right Obesity Surgical History Surgical History H/O tubal ligation H/O umbilical hernia repair Hx of cholecystectomy Social History Social History Smoking status: Never smoker Alcohol intake: never Substance use: never Spiritual care concerns: No Exam Const: General: healthy appearing and no acute distress Nutritional Appearance: obese (morbid obesity) morbidly obese Orientation/consciousness: patient oriented x3 Limitations: no limitations HENMT: Head: normal to inspection Ears: external ears normal, TM's normal bilaterally and EAC's normal General nose exam: Normal external nose present and Normal nares present Face and sinus: normal facial exam and sinuses nontender Mouth: Yes moist mucous membranes Teeth and gingiva: dentition normal Throat: posterior oropharynx normal Eyes: Conjunctivae: conjunctivae normal Pupils: Equal, round and reactive pupils present EOM: EOMs intact bilaterally Neck: Neck: normal visual inspection Chest: Chest palpation & inspection: normal inspection of the chest Resp: Effort & Inspection: normal respiratory effort Auscultation: clear to auscultation bilaterally Cardio: Rate: regular rate Rhythm: regular rhythm GI: GI Palp: Yes Soft to palpation and No Tenderness to palpation present (GI) Auscultation: normal bowel sounds : General: Yes bladder normal to palpation Back/Spine/Pelvis: Back: no CVA tenderness Skin: General skin exam: normal color Rashes: no rashes Wounds: no wounds Andreia
[2021-10-17] MEDS: KETOROLAC (*BKC) 60 MG/2 ML VIAL IM (17:41)
[2021-10-17 18:19] VITALS: BP 106/88; PULSE 90; RESP 16; TEMP 36.7; O2SAT 97
== END 2021-10-17 18:29 | disposition home or self-care (01) ==
PROVIDERS: Emergency Provider Emergency Medicine
DX: M25.561 Pain in right knee (principal); L97.918 Non-pressure chronic ulcer of unspecified part of right lower leg with other specified severity
CPT/HCPCS: 73562; 96372; 99283; J1885

== ENCOUNTER 2023-12-15 17:32 | Emergency (ER) | payer MEDICARE, OTHER, SELFPAY ==
[2023-12-15 17:32] VITALS: BP 144/81; PULSE 93; RESP 20; TEMP 36.3; O2SAT 94
--- NOTE | 2023-12-15 18:22 | ED.BACK ---
HPI - Back Pain/Injury General Chief Complaint: Urogenital-Female Stated Complaint: back pain Time Seen by Provider: 12/15/23 17:38 Source: patient Mode of arrival: ambulatory ( Walker) Limitations: no limitations History of Present Illness HPI Narrative: patient is a 53-year-old female with mid back pain with muscle spasms for the past few days. She has seen her primary doctor and other ERs for this problem. She has had some recent x-rays that did not show anything but arthritis. No injury. No urinary complaints today. MD elicited complaint: back pain Pertinent past history: prior back pain Onset (ago): day(s) (3) Timing: constant Severity: moderate Pain scale (0-10): 5 Quality: burning, sharp and tingling Location: thoracic spine Radiation: none Exacerbating factors: none Relieving factors: none Context: bending Associated symptoms: denies other symptoms Treatments prior to arrival: other medications Related Data Home Medications Medication Instructions Recorded Confirmed cyclobenzaprine 10 mg tablet 10 mg PO BID PRN Spasms 06/03/19 10/17/21 dicyclomine 10 mg capsule 20 mg PO TID 06/03/19 10/17/21 hydrochlorothiazide 25 mg tablet 25 mg PO DAILY 06/03/19 10/17/21 oxcarbazepine 150 mg tablet 450 mg PO BID 06/03/19 10/17/21 albuterol sulfate 90 mcg/actuation 1 inh inhalation QID PRN Shortness 01/13/20 10/17/21 aerosol inhaler (ProAir HFA) Of Breath buspirone 10 mg tablet 20 mg PO BID 01/13/20 10/17/21 clonidine HCl 0.2 mg tablet 0.2 mg PO HS 01/13/20 10/17/21 ferrous sulfate 325 mg (65 mg 325 mg PO DAILY 01/13/20 10/17/21 iron) tablet (iron) fluoxetine 20 mg capsule 60 mg PO DAILY 01/13/20 10/17/21 lamotrigine 25 mg chewable 50 mg PO DAILY 01/13/20 10/17/21 dispersible tablet (Lamictal) nortriptyline 10 mg capsule 10 mg PO HS 01/13/20 10/17/21 pregabalin 150 mg capsule 300 mg PO BID 01/13/20 10/17/21 famotidine 20 mg tablet 20 mg PO BID 03/28/20 10/17/21 hydroxyzine pamoate 25 mg capsule 25 mg PO TID 03/28/20 10/17/21 loratadine 10 mg tablet 10 mg PO DAILY 03/28/20 10/17/21 oxycodone 5 mg tablet 5 mg PO Q6-12H PRN Pain 03/28/20 10/17/21 Allergies Allergy/AdvReac Type Severity Reaction Status Date / Time naproxen [From Aleve] AdvReac PILL GETS Verified 10/17/21 17:05 STUCK IN THROAT Review of Systems Review of Systems: All systems reviewed & are unremarkable except as noted in HPI and below Constitutional: Constitutional: Reports no additional constitutional complaints Eyes: Eyes: Reports no additional eye complaints ENT: Reports system reviewed and no additional complaints, except as documented Cardiovascular: Cardiovascular: Reports no additional cardiovascular complaints Respiratory: Respiratory: Reports no additional respiratory complaints Gastrointestinal: Gastrointestinal: Reports no additional gastrointestinal complaints Genitourinary: Genitourinary: Reports no additional female genitourinary complaints Musculoskeletal: Musculoskeletal: Reports no additional musculoskeletal complaints Integumentary/Breasts: Skin/Breast: Reports system reviewed and no additional complaints, except as docu Neurologic: Reports system reviewed and no additional complaints, except as documented Psychiatric: Psychiatric: Reports no additional psychiatric complaints Endocrine: Endocrine: Reports no additional endocrine complaints Hematologic/Lymphatic: Hematologic/Lymphatic: Reports no additional hematologic/lymphatic complaints Allergic/Immunologic: Allergic/Immunologic: Reports no additional allergic/immunologic complaints PMFSH Past Medical History Medical History Abnormal vaginal bleeding Anemia Anxiety Asthma Depression History of left heart catheterization (LHC) Hypertension Knee pain, right Obesity Surgical History Surgical History H/O tubal ligation H/O umbilical her
[2023-12-15] MEDS: ORPHENADRINE CITRATE 30 MG/ML 2 ML VIAL 60 MG IM (18:24)
[2023-12-15] MEDS: methylPREDNISolone SOD SUCC 125 MG VIAL IM (18:24)
[2023-12-15 18:30] LABS: Appearance Urine Clear (Clear); Bilirubin Urine Negative (Negative); Blood Urine Negative (Negative); Color Urine Light Yellow (Yellow); Glucose Urine UA Negative (Negative); Ketones Urine Negative (Negative); Leukocyte Esterase Ur Negative LEU/UL (Negative); Nitrate Urine Negative (Negative); Protein Urine Negative (Negative); Specific Grav Ur 1.025 (1.010-1.020); Urobilinogen Urine 0.2 mg/dL (0.2-1.0)
[2023-12-15 18:31] LABS: Add Urine Microscopic? NO
--- NOTE | 2023-12-15 19:37 | PC.NURSE ---
patient is requesting medications be sent to the [facility] here in [place]. will update pharmacy. patient rates pain at 2/10
[2023-12-15 19:39] VITALS: BP 136/82; PULSE 75; RESP 18; O2SAT 98
== END 2023-12-15 19:39 | disposition home or self-care (01) ==
PROVIDERS: Emergency Provider Emergency Medicine
DX: M62.830 Muscle spasm of back (principal); I10 Essential (primary) hypertension
CPT/HCPCS: 81003; 96372; 99284; J2360; J2919

== ENCOUNTER 2024-05-25 11:12 | Emergency (ER) | payer MEDICARE, OTHER, SELFPAY ==
--- NOTE | ~2024-05-25 | XR_ITS ---
XR chest 1V portable DATE: 05/25/2024 11:51 INDICATION: Shortness of breath, productive cough with purulent sputum TECHNIQUE: Portable upright AP chest 05/25/2024 at 1150 hours COMPARISON: None FINDINGS: Globular cardiac silhouette enlargement which may be due to cardiomegaly/cardiomyopathy; pe ricardial effusion is not excluded. Cardiomegaly is most likely versus pericardial effusion when comp aring to the prior CT chest of , at which time there was significant cardiomegaly as well. Minimal atelectasis or infiltrate may be present in the lower lung zones. The lungs otherwise appear clear. No pleural effusion or pulmonary vascular congestion or pneumothorax is detected. Osteopenia. IMPRESSION: Cardiomegaly Minimal infiltrate or atelectasis may present in the lower lungs Reviewed, dictated and finalized at location [facility]. [facility]
--- NOTE | 2024-05-25 11:16 | ED_ITS ---
HPI - URI/Sore Throat General Chief Complaint: Upper Respiratory Infection Stated Complaint: cold symptoms Time Seen by Provider: 05/25/24 11:15 Source: patient Mode of arrival: ambulatory Limitations: no limitations History of Present Illness HPI Narrative: 54-year-old female with obesity, anxiety, asthma, hypertension with admission to [facility] 1 month ago for pneumonia she presents to the ED with a 2 day history of -- cough which is productive of mucopurulent sputum -- nasal congestion no fever or chills no chest pain or shortness of breath MD elicited complaint: cough and nasal congestion Pertinent past history: pneumonia Onset (ago): day(s) ( 2 days) Consistency: constant Severity: mild Description of mucous: yellow Able to tolerate fluids by mouth: Yes Exacerbating factors: nothing Relieving factors: nothing Associated symptoms: denies other symptoms, rhinorrhea, nasal congestion and cough Treatments prior to arrival: none Related Data Home Medications ?Medication ?Instructions ?Recorded ?Confirmed ?Last Taken ?Type cyclobenzaprine 10 mg tablet 10 mg PO BID PRN Spasms 06/03/19 10/17/21 01/23/20 History dicyclomine 10 mg capsule 20 mg PO TID 06/03/19 10/17/21 01/23/20 History hydrochlorothiazide 25 mg tablet 25 mg PO DAILY 06/03/19 10/17/21 01/23/20 History oxcarbazepine 150 mg tablet 450 mg PO BID 06/03/19 10/17/21 01/23/20 History albuterol sulfate 90 mcg/actuation 1 inh inhalation QID PRN Shortness 01/13/20 10/17/21 01/23/20 History aerosol inhaler (ProAir HFA) Of Breath buspirone 10 mg tablet 20 mg PO BID 01/13/20 10/17/21 01/23/20 History clonidine HCl 0.2 mg tablet 0.2 mg PO HS 01/13/20 10/17/21 01/23/20 History ferrous sulfate 325 mg (65 mg 325 mg PO DAILY 01/13/20 10/17/21 01/23/20 History iron) tablet (iron) fluoxetine 20 mg capsule 60 mg PO DAILY 01/13/20 10/17/21 01/23/20 History lamotrigine 25 mg chewable 50 mg PO DAILY 01/13/20 10/17/21 01/23/20 History dispersible tablet (Lamictal) nortriptyline 10 mg capsule 10 mg PO HS 01/13/20 10/17/21 01/23/20 History pregabalin 150 mg capsule 300 mg PO BID 01/13/20 10/17/21 01/23/20 History famotidine 20 mg tablet 20 mg PO BID 03/28/20 10/17/21 Unknown History hydroxyzine pamoate 25 mg capsule 25 mg PO TID 03/28/20 10/17/21 Unknown History loratadine 10 mg tablet 10 mg PO DAILY 03/28/20 10/17/21 Unknown History oxycodone 5 mg tablet 5 mg PO Q6-12H PRN Pain 03/28/20 10/17/21 Unknown History Allergies Allergy/AdvReac Type Severity Reaction Status Date / Time naproxen (From Aleve) AdvReac PILL GETS Verified 05/25/24 11:32 STUCK IN THROAT Review of Systems 2 Review of Systems: All systems reviewed & are unremarkable except as noted in HPI and below Constitutional: Constitutional: Reports as per HPI and Reports no additional constitutional complaints Eyes: Eyes: Reports as per HPI and Reports no additional eye complaints ENT: Reports system reviewed and no additional complaints, except as documented, Reports as per HPI and Reports nasal congestion Cardiovascular: Cardiovascular: Reports as per HPI and Reports no additional cardiovascular complaints Respiratory: Respiratory: Reports as per HPI, Reports no additional respiratory complaints and Reports cough Gastrointestinal: Gastrointestinal: Reports as per HPI and Reports no additional gastrointestinal complaints Genitourinary: Genitourinary: Reports no additional female genitourinary complaints Musculoskeletal: Musculoskeletal: Reports no additional musculoskeletal complaints and Reports as per HPI Integumentary/Breasts: Skin/Breast: Reports system reviewed and no additional complaints, except as docu and Reports as per HPI Neurologic: Reports system reviewed and no additional complaints, except as documented and Reports as per HPI Psychiatric: Psychiatric: Reports no additional psychiatric complaints and Reports as per HPI Endocrine: Endocrine: Reports no additional endocrine complaints and Reports as per HPI Hematologic/Lymphatic: Hematologic/Lymphatic: Reports no additional hematologic/lymphatic complaints and Reports as per HPI Allergic/Immunologic: Allergic/Immunologic: Reports no additional allergic/immunologic complaints and Reports as per HPI [facility] Past Medical History Medical History Knee pain, right Depression Anxiety Asthma Hypertension History of left heart catheterization (LHC) Obesity Abnormal vaginal bleeding Anemia Surgical History Surgical History H/O umbilical hernia repair Hx of cholecystectomy H/O tubal ligation Social History Social History Smoking status: Never smoker Alcohol intake: never Substance use: never Living arrangements: with family Spiritual care concerns: No Exam 2 Narrative: oxygen saturation of 94% on room air. Afebrile. Const: General: healthy appearing Nutritional Appearance: obese O rientation/consciousness: patient oriented x3 Limitations: no limitations HENMT: Head: normal to inspection Ears: external ears normal F radha/Nose/Sinus: Normal external nose present Face and sinus: normal facial exam Mouth: Yes Normal oral and palatal mucosa present Throat: posterior oropharynx normal Eyes: Conjunctivae: conjunctivae normal Pupils: Equal, round and reactive pupils present EOM: EOMs intact bilaterally Direct Ophthalmoscopy: no photophobia Neck: Neck: normal visual inspection, no lymphadenopathy and no meningeal signs Chest: Chest palpation & inspection: normal inspection of the chest Resp: Effort & Inspection: normal respiratory effort Auscultation: rhonchi and diminished lung sounds Cardio: Rate: regular rate Rhythm: regular rhythm GI: GI Palp: Yes Soft to palpation Other: No tenderness/ rigidity / rebound. : General: Yes no CVA tenderness Back/Spine/Pelvis: Back: no CVA tenderness Skin: General skin exam: normal color Rashes: no rashes Wounds: no wounds Neuro: General: patient oriented x3, moves all extremities, no meningeal signs, no focal motor deficits and CN's II-XI intact bilaterally Cranial nerves: Yes Nystagmus not present Speech: normal speech Gait exam (Neuro): Normal gait present Extrem: General: normal to inspection, no clubbing, cyanosis or edema and no pedal edema Psych: Mental Status: mental status grossly normal Affect: normal affect Attitude: cooperative Course Course Emergency Course: upper respiratory tract infection-- yeah patient tested positive for RSV cough-- patient is noted to have a normal white cell count. Chest x-ray revealed bibasilar infiltrates/atelectasis. Will treat with Zithromax bronchospasm- secondary to bronchitis / asthma. Word recommend bronchodilators Vital Signs Vital signs: Vital Signs Temperature 36.6 C 05/25/24 11:21 Pulse Rate 94 05/25/24 11:21 Respiratory Rate 21 H 05/25/24 11:21 Blood Pressure 155/117 H 05/25/24 11:21 Pulse Oximetry 94 05/25/24 11:21 Oxygen Delivery Room Air 05/25/24 11:21 Temperature 36.6 C 05/25/24 12:49 Pulse Rate 86 05/25/24 12:49 Respiratory Rate 20 05/25/24 12:49 Blood Pressure 118/91 H 05/25/24 12:49 Pulse Oximetry 94 05/25/24 12:49 Oxygen Delivery Room Air 05/25/24 12:49 MDM - URI/Sore Throat MDM Narrative Medical decision making narrative: RSV upper respiratory tract infection bibasilar lung infiltrates/atelectasis bronchospasm Lab Data 05/25/24 12:09 05/25/24 12:09 Labs: Lab Results 05/25/24 05/25/24 Range/Units 11:45 12:09 WBC 5.3 (4.8-10.8) K/mm3 RBC 4.65 (4.20-5.40) M/mm3 Hgb 13.0 (12.0-15.0) g/dL Hct 41.3 (35.0-49.0) % MCV 88.8 (78.0-102.0) fL MCH 28.0 (27.0-31.0) pg MCHC 31.5 L (32-36) g/dL RDW 15.1 H (11.6-14.4) % Plt Count 142 L (150-420) K/mm3 MPV 11.7 (9.2-11.8) fl Immature Gran % (Auto) 0.4 H (0.0-0.0) % Neut % (Auto) 49.8 L (50.0-70.0) % Lymph % (Auto) 37.7 (18.0-42.0) % [place] % (Auto) 9.2 (2.0-11.0) % Eos % (Auto) 2.1 (1.0-6.0) % Baso % (Auto) 0.8 (0.0-1.0) % Lymph # (Auto) 2.00 (1.10-4.50) K/mm3 [place] # (Auto) 0.49 (0.10-0.90) K/mm3 Eos # (Auto) 0.11 (0.02-0.50) K/mm3 Baso # (Auto) 0.04 (0.00-0.10) K/mm3 Abs Immat Gran (auto) 0.02 H (0.00-0.00) K/mm3 Absolute Neuts (auto) 2.65 (1.70-7.20) K/mm3 Absolute Nucleated RBC 0.00 (0.00-0.00) K/mm3 Nucleated RBC % 0.0 (0-0.0) % Sodium 141 (136-145) mmol/L Potassium 4.1 (3.5-5.1) mmol/L Chloride 105 (98-108) mmol/L Carbon Dioxide 29 (21-32) mmol/L Anion Gap 7 (4-12) mmol/L BUN 12 (7-18) mg/dL Creatinine 0.75 (0.55-1.02) mg/dL Estim Creat Clear Calc 110 ml/min Estimated GFR > 60 (59 - ) Glucose 91 (70-99) mg/dL Calculated Osmolality 291 (285-295) mOsm/kg Lactic Acid 1.3 (0.4-2.0) mmol/L Calcium 8.5 (8.5-10.1) mg/dL Total Bilirubin 0.4 (0.00-1.00) mg/dL AST 14 L (15-37) U/L ALT 22 (14-59) U/L Alkaline Phosphatase 83 (46-116) U/L Troponin I 23.6 (0.00-60.4) ng/L Total Protein 7.2 (6.4-8.2) g/dL Albumin 3.0 L (3.4-5.0) g/dL Influenza A (RT-PCR) Negative (Negative) Influenza B (RT-PCR) Negative (Negative) RSV (RT-PCR) Positive A (Negative) SARS-CoV-2 RNA (RT-PCR) Negative (Negative) Group A Strep (PCR) Not detected (Negative) ECG Data EKG #1: ECG completion date: 05/25/24 ECG completion time: 12:59 Interpretation: normal sinus rhythm. Normal axis. No ST elevation Discharge Plan Discharge Clinical Impression: Acute bronchospasm Upper respiratory infection Qualifiers: URI type: unspecified URI Qualified Code(s): J06.9 - Acute upper respiratory infection, unspecified RSV infection Qualifiers: RSV infection type: unspecified Qualified Code(s): B33.8 - Other specified viral diseases Pneumonia Qualifiers: Pneumonia type: due to unspecified organism Laterality: bilateral Lung location: lower lobe of lung Qualified Code(s): J18.9 - Pneumonia, unspecified organism Patient Disposition: Home, Self-Care Condition: Stable Instructions: Antibiotic Form, Upper Respiratory Infection (ED), Bronchospasm (ED), Pneumonia (ED) Patient Language: Angolan Prescriptions: New azithromycin [Zithromax] 250 mg tablet See Rx Instructions .ROUTE .COMPLEX Qty: 6 0RF Rx Instructions: For 250 mg dose pack: take 500 mg today (day 1), then 250 mg for 4 days (days 2-5) albuterol sulfate 90 mcg/actuation aero powdr breath act w/sensor 2 inh inhalation Q4-6H PRN (Reason: shortness of breath) Qty: 1 0RF No Action cyclobenzaprine 10 mg tablet 10 mg PO BID PRN (Reason: Spasms) oxcarbazepine 150 mg tablet 450 mg PO BID hydrochlorothiazide 25 mg tablet 25 mg PO DAILY dicyclomine 10 mg capsule 20 mg PO TID famotidine 20 mg tablet 20 mg PO BID loratadine 10 mg Tablet 10 mg PO DAILY oxycodone 5 mg tablet 5 mg PO Q6-12H PRN (Reason: Pain) hydroxyzine pamoate 25 mg capsule 25 mg PO TID furosemide [Lasix] 20 mg tablet 20 mg PO DAILY Qty: 7 0RF nystatin 100,000 unit/gram cream 1 applic topical TID 10 Days Qty: 15 0RF ibuprofen 800 mg tablet 800 mg PO TID Qty: 20 0RF omeprazole magnesium [Prilosec OTC] 20 mg tablet,delayed release (DR/EC) 20 mg PO BID Qty: 20 0RF methylprednisolone [Medrol (Josh)] 4 mg tablets,dose pack See Rx Instructions .ROUTE .COMPLEX Qty: 21 0RF Rx Instructions: orally per package directions orphenadrine citrate 100 mg tablet extended release 100 mg PO BID PRN (Reason: pain) Qty: 20 0RF lamotrigine [Lamictal] 25 mg Tablet, Chewable Dispersible 50 mg PO DAILY clonidine HCl 0.2 mg tablet 0.2 mg PO HS nortriptyline 10 mg capsule 10 mg PO HS ferrous sulfate [iron] 325 mg (65 mg iron) Tablet 325 mg PO DAILY buspirone 10 mg Tablet 20 mg PO BID albuterol sulfate [ProAir HFA] 90 mcg/actuation Hfa Aerosol Inhaler 1 inh INHALATION QID PRN (Reason: Shortness Of Breath) fluoxetine 20 mg capsule 60 mg PO DAILY pregabalin 150 mg capsule 300 mg PO BID Follow-up/Referrals: Farhad,Tiffany Matnilla NP [Primary Care Provider] - Time of Disposition: 13:04
[2024-05-25 11:21] VITALS: BP 155/117; PULSE 94; RESP 21; TEMP 36.6; O2SAT 94
[2024-05-25 11:34] VITALS: O2SAT 96
--- NOTE | 2024-05-25 11:44 | ECG_ITS ---
Test Date: 2024-05-25 12:03:43 Measurements Intervals [place] Rate: 80 P: 54 NC: 204 QRS: 23 QRSD: 107 T: 57 QT: 372 QTc: 429 Interpretive Statements SINUS RHYTHM NONSPECIFIC ST AND T WAVE ABNORMALITY No previous ECG available for comparison Electronically Signed On 05-28-2024 17:41:29 [employer] by Jossy Caro M.D.
--- NOTE | 2024-05-25 11:44 | PC.NURSE ---
Covid culture sent to lab
[2024-05-25] MEDS: IPRATROPIUM 0.5 MG/ALBUTEROL SULFATE 2.5 MG AMPUL.NEB 3 ML INHALATION (11:49)
[2024-05-25 12:13] LABS: Basophils Absolute Auto 0.04 K/mm3 (0.00-0.10); Basophils Percent Auto 0.8 % (0.0-1.0); Eosinophils Absolute Auto 0.11 K/mm3 (0.02-0.50); Eosinophils Percent Auto 2.1 % (1.0-6.0); Hematocrit 41.3 % (35.0-49.0); Immature Granulocyte Absolute 0.02 K/mm3 (0.00-0.00); Immature Granulocyte Percent A 0.4 % (0.0-0.0); Lymphocytes Percent Auto 37.7 % (18.0-42.0); Mean Corpuscular HGB Conc 31.5 g/dL (32-36); Mean Corpuscular Volume 88.8 fL (78.0-102.0); Mean Platelet Volume 11.7 fl (9.2-11.8); Monocytes Absolute Auto 0.49 K/mm3 (0.10-0.90); Monocytes Percent Auto 9.2 % (2.0-11.0); Neutrophils Absolute Auto 2.65 K/mm3 (1.70-7.20); Neutrophils Percent Auto 49.8 % (50.0-70.0); Platelet Count Result 142 K/mm3 (150-420); Red Blood Count 4.65 M/mm3 (4.20-5.40); Red Cell Distribution Width 15.1 % (11.6-14.4); White Blood Count 5.3 K/mm3 (4.8-10.8)
[2024-05-25 12:20] LABS: Strep Group A RT-PCR NOT DETECTED (Negative)
[2024-05-25 12:28] LABS: SARS-CoV-2 RNA PCR Negative (Negative)
[2024-05-25 12:32] LABS: Lactic Acid Reflex 1.3 mmol/L (0.4-2.0)
[2024-05-25 12:34] LABS: Alanine Aminotransferase 22 U/L (14-59); Alkaline Phosphatase 83 U/L (46-116); Anion Gap 7 mmol/L (4-12); Aspartate Amino Transferase 14 U/L (15-37); Bilirubin,Total 0.4 mg/dL (0.00-1.00); Blood Urea Nitrogen 12 mg/dL (7-18); Calcium 8.5 mg/dL (8.5-10.1); Carbon Dioxide 29 mmol/L (21-32); Chloride 105 mmol/L (98-108); Estimated CRCL calculation 110 ml/min; Estimated Glomerular Filt Rate > 60; Glucose 91 mg/dL (70-99); Osmolality Calculated 291 mOsm/kg (285-295); Potassium 4.1 mmol/L (3.5-5.1); Sodium 141 mmol/L (136-145); Total Protein 7.2 g/dL (6.4-8.2)
[2024-05-25 12:34] LABS: Influenza A QL RT-PCR Negative (Negative); Influenza B QL RT-PCR Negative (Negative); RSV RNA, RT-PCR Positive (Negative)
[2024-05-25 12:41] LABS: Troponin I 23.6 ng/L (0.00-60.4)
[2024-05-25 12:49] VITALS: BP 118/91; PULSE 86; RESP 20; TEMP 36.6; O2SAT 94
[2024-05-25 13:12] VITALS: BP 118/91; PULSE 86; RESP 20; TEMP 36.6; O2SAT 94
== END 2024-05-25 13:12 | disposition home or self-care (01) ==
PROVIDERS: Emergency Provider Internal Medicine Critical Care Medicine; PCP Registered Nurse
DX: J98.01 Acute bronchospasm (principal); I10 Essential (primary) hypertension; F41.9 Anxiety disorder, unspecified; F32.A Depression, unspecified; Z79.51 Long term (current) use of inhaled steroids; Z20.822 Contact with and (suspected) exposure to COVID-19
CPT/HCPCS: 36415; 71045; 80053; 83605; 84484; 85025; 87637; 87651; 93005; 99284